=== PATIENT | male | born 1955 | race Caucasian/White ===

== ENCOUNTER 2022-07-08 09:05 | Inpatient (IN) | payer OTHER ==
[~2022-07-08] VITALS: Ht 165.1 cm; Wt 94.8 kg
[2022-07-08] VITALS (11 sets, daily range): BP systolic 88–131; BP diastolic 51–74
[2022-07-08] MEDS ORDERED: CETI-450 PO (09:18)
[2022-07-08] MEDS ORDERED: ELVI1TAB3 PO (09:18)
[2022-07-08] MEDS ORDERED: ROSU20TA73 PO (09:18)
[2022-07-08] MEDS ORDERED: LOSA-382 PO (09:18)
[2022-07-08] MEDS ORDERED: METO50 PO (09:18)
[2022-07-08] MEDS ORDERED: ASPI-989 PO (09:18)
[2022-07-08 09:37] LABS: BASOPHILS % (AUTO) 0.4 % (0.0-2.0); EOSINOPHILS % (AUTO) 2.9 % (1.0-6.0); HEMATOCRIT 33.5 % (41-53); HEMOGLOBIN 11.3 g/dL (13.5-17.5); LYMPHOCYTES # (AUTO) 4.6 K/uL (1.0-4.8); LYMPHOCYTES % (AUTO) 39.2 % (22.0-44.0); MEAN CORPUSCULAR HEMOGLOBIN 33.5 pg (26.0-34.0); MEAN CORPUSCULAR HGB CONC 33.7 G/dL (31.0-37.0); MEAN CORPUSCULAR VOLUME 99 fL (80-100); MONOCYTES # (AUTO) 0.8 K/uL (0.1-1.0); MONOCYTES % (AUTO) 7.1 % (2.0-9.0); NEUTROPHILS % (AUTO) 50.4 % (40.0-70.0); PLATELET COUNT (AUTO) 154 K/uL (150-450); RED BLOOD CELL COUNT(AUTO) 3.38 MIL/uL (4.50-5.90); RED CELL DISTRIBUTION WIDTH 13.7 % (11.5-14.5)
[2022-07-08 09:47] LABS: ANION GAP 14 mmol/L (8-16); CALCIUM, TOTAL 7.8 mg/dL (8.8-10.5); CARBON DIOXIDE 20 mmol/L (22-29); CHLORIDE 104 mmol/L (98-107); CREATININE 1.33 mg/dL (0.60-1.30); GLUCOSE,RANDOM 302 mg/dL (70-110); POTASSIUM 3.5 mmol/L (3.5-5.1); SODIUM SERUM 138 mmol/L (136-145); UREA NITROGEN, BLOOD 25 mg/dL (7-18)
[2022-07-08 09:48] LABS: GLOMERULAR FILTR. RATE CALC 54 mL/min (>60)
[2022-07-08 09:53] LABS: ALANINE AMINOTRANSFERASE 31 U/L (12-78); ALBUMIN 2.8 g/dL (3.4-5.0); ALKALINE PHOSPHATASE 53 U/L (46-116); ASPARTATE AMINOTRANSFERASE 17 U/L (15-37); BILIRUBIN,TOTAL 0.6 mg/dL (0.1-1.0); TOTAL PROTEIN, SERUM 5.6 g/dL (6.4-8.2)
[2022-07-08 09:56] LABS: LACTIC ACID 5.7 mmol/L (0.4-2.0)
[2022-07-08 10:03] LABS: INR 1.1 (0.9-1.1)
[2022-07-08] MEDS ORDERED: CALCIUM GLUCONATE 1,000 MG in DEXTROSE 5%-WATER 50 ML IV ONE (10:45)
[2022-07-08 11:45] LABS: BASOPHILS % (AUTO) 0.1 % (0.0-2.0); EOSINOPHILS % (AUTO) 0.2 % (1.0-6.0); HEMATOCRIT 36.2 % (41-53); LYMPHOCYTES # (AUTO) 2.3 K/uL (1.0-4.8); LYMPHOCYTES % (AUTO) 13.4 % (22.0-44.0); MEAN CORPUSCULAR HEMOGLOBIN 33.3 pg (26.0-34.0); MEAN CORPUSCULAR HGB CONC 33.3 G/dL (31.0-37.0); MEAN CORPUSCULAR VOLUME 100 fL (80-100); MONOCYTES # (AUTO) 1.1 K/uL (0.1-1.0); MONOCYTES % (AUTO) 6.4 % (2.0-9.0); NEUTROPHILS # (AUTO) 13.9 K/uL (1.8-7.7); NEUTROPHILS % (AUTO) 79.9 % (40.0-70.0); PLATELET COUNT (AUTO) 163 K/uL (150-450); RED BLOOD CELL COUNT(AUTO) 3.62 MIL/uL (4.50-5.90); RED CELL DISTRIBUTION WIDTH 14.1 % (11.5-14.5)
[2022-07-08] MEDS ORDERED: METO25 PO (12:38)
[2022-07-08] MEDS ORDERED: SILVER NITRATE APPLICATOR 1 EA STICK TP ONE ×2 (12:53→13:15)
[2022-07-08] MEDS ORDERED: ALBUTEROL SULFATE 2.5 MG/0.5 ML NEB SOLUTION NEB PRN (15:00)
[2022-07-08] MEDS ORDERED: IPRATROPIUM BROMIDE 0.5 MG/2.5 ML NEB SOLUTION NEB PRN (15:00)
[2022-07-08] MEDS ORDERED: ONDANSETRON HCL 4 MG/2 ML VIAL IVP PRN (15:00)
[2022-07-08] MEDS ORDERED: ACETAMINOPHEN 325 MG TABLET PO PRN (15:00)
[2022-07-08] MEDS ORDERED: HYDROCODONE/ACETAMINOPHEN 5-325 MG TABLET PO PRN (15:00)
[2022-07-08] MEDS ORDERED: DOCUSATE SODIUM 100 MG CAPSULE PO PRN (15:00)
[2022-07-08] MEDS: SODIUM CHLORIDE 0.9% 1,000 ML IV SCH (15:34)
[2022-07-08 15:51] LABS: BASOPHILS % (AUTO) 0.2 % (0.0-2.0); EOSINOPHILS % (AUTO) 0 % (1.0-6.0); HEMATOCRIT 35.5 % (41-53); HEMOGLOBIN 12.1 g/dL (13.5-17.5); LYMPHOCYTES # (AUTO) 1.3 K/uL (1.0-4.8); LYMPHOCYTES % (AUTO) 11.3 % (22.0-44.0); MEAN CORPUSCULAR HEMOGLOBIN 33.4 pg (26.0-34.0); MEAN CORPUSCULAR VOLUME 98 fL (80-100); MONOCYTES # (AUTO) 0.3 K/uL (0.1-1.0); MONOCYTES % (AUTO) 3.1 % (2.0-9.0); NEUTROPHILS # (AUTO) 9.5 K/uL (1.8-7.7); PLATELET COUNT (AUTO) 137 K/uL (150-450); RED BLOOD CELL COUNT(AUTO) 3.61 MIL/uL (4.50-5.90); RED CELL DISTRIBUTION WIDTH 14.6 % (11.5-14.5)
[2022-07-08 15:55] LABS: NEUTROPHILS % (AUTO) 85.4 % (40.0-70.0)
[2022-07-08] MEDS ORDERED: HEPARIN SODIUM,PORCINE 5,000 UNITS/ML VIAL IVP ONE (16:30)
[2022-07-08] MEDS ORDERED: HEPARIN SODIUM,PORCINE 5,000 UNITS/ML VIAL IVP PRN ×2 (16:30)
[2022-07-08] MEDS: HEPARIN SODIUM 25000 UNITS/D5W 250 ML IV PRN (16:46)
[2022-07-08] MEDS ORDERED: NITROGLYCERIN 50 MG/D5% WATER 250 ML ONE (19:36)
[2022-07-08] MEDS ORDERED: VERAPAMIL HCL 2.5 MG/ML 2 ML VIAL ONE (19:36)
[2022-07-08] MEDS ORDERED: LIDOCAINE/PF 1% 30 ML VIAL ONE (19:37)
[2022-07-08] MEDS ORDERED: SODIUM BICARBONATE 50 MEQ/50 ML VIAL ONE (19:37)
[2022-07-08] MEDS ORDERED: IOHEXOL 350 MG/ML 100 ML VIAL ONE (19:37)
[2022-07-08] MEDS ORDERED: HEPARIN SODIUM 1000 UNITS/NS 1,000 ML ONE (19:37)
[2022-07-08] MEDS ORDERED: FentaNYL CITRATE PF 100 MCG/2 ML VIAL ONE (20:20)
[2022-07-08] MEDS ORDERED: MIDAZOLAM HCL 2 MG/2 ML VIAL ONE (20:20)
[2022-07-08] MEDS ORDERED: LIDOCAINE 1% 30 ML/SOD BICARB 8.4% 4 ML SQ ONE (20:30)
[2022-07-08] MEDS ORDERED: MIDAZOLAM HCL 2 MG/2 ML VIAL IVP ONE (20:30)
[2022-07-08] MEDS ORDERED: FentaNYL CITRATE PF 100 MCG/2 ML VIAL IVP ONE (20:30)
[2022-07-08] MEDS ORDERED: HEPARIN SODIUM,PORCINE 1,000 UNITS/ML 10 ML VIAL IARTER ONE (20:30)
[2022-07-08] MEDS ORDERED: VERAPAMIL HCL 2.5 MG/ML 2 ML VIAL IARTER ONE (20:30)
[2022-07-08] MEDS ORDERED: NITROGLYCERIN/D5W 50 MG/250 ML IV BOTTLE IARTER ONE (20:30)
[2022-07-08] MEDS ORDERED: HEPARIN SODIUM 1000 UNITS/NS 1,000 ML IARTER ONE (20:30)
[2022-07-09] VITALS (9 sets, daily range): BP systolic 118–159; BP diastolic 57–85
[2022-07-09] MEDS: SODIUM CHLORIDE 0.9% 1,000 ML IV SCH (04:38)
[2022-07-09 05:29] LABS: BASOPHILS % (AUTO) 0.1 % (0.0-2.0); EOSINOPHILS % (AUTO) 0 % (1.0-6.0); HEMOGLOBIN 10.4 g/dL (13.5-17.5); MEAN CORPUSCULAR HEMOGLOBIN 33.8 pg (26.0-34.0); MEAN CORPUSCULAR HGB CONC 34.6 G/dL (31.0-37.0); MEAN CORPUSCULAR VOLUME 98 fL (80-100); MONOCYTES # (AUTO) 0.9 K/uL (0.1-1.0); MONOCYTES % (AUTO) 6.7 % (2.0-9.0); NEUTROPHILS # (AUTO) 11.1 K/uL (1.8-7.7); NEUTROPHILS % (AUTO) 79.2 % (40.0-70.0); PLATELET COUNT (AUTO) 135 K/uL (150-450); RED BLOOD CELL COUNT(AUTO) 3.08 MIL/uL (4.50-5.90); RED CELL DISTRIBUTION WIDTH 14.6 % (11.5-14.5)
[2022-07-09 05:55] LABS: ALANINE AMINOTRANSFERASE 32 U/L (12-78); ALBUMIN 3.1 g/dL (3.4-5.0); ALKALINE PHOSPHATASE 37 U/L (46-116); ANION GAP 11 mmol/L (8-16); ASPARTATE AMINOTRANSFERASE 63 U/L (15-37); BILIRUBIN,TOTAL 0.8 mg/dL (0.1-1.0); CALCIUM, TOTAL 8.3 mg/dL (8.8-10.5); CARBON DIOXIDE 25 mmol/L (22-29); CHLORIDE 104 mmol/L (98-107); CHOL/HDL RATIO 3.2 (4.2-7.3); CHOLESTEROL 107 mg/dL (131-200); CREATININE 0.91 mg/dL (0.60-1.30); FREE T4 (FREE THYROXINE) 0.89 ng/dL (0.76-1.46); GLUCOSE,RANDOM 202 mg/dL (70-110); HDL CHOLESTEROL 33 mg/dL (40-60); LDL CHOL (CALC.) 44 mg/dL (0-130); POTASSIUM 4.2 mmol/L (3.5-5.1); SODIUM SERUM 140 mmol/L (136-145); THYROID STIMULATING HORMONE 0.29 uIU/mL (0.36-3.74); TOTAL PROTEIN, SERUM 6.2 g/dL (6.4-8.2); TRIGLYCERIDES 150 mg/dL (15-150); UREA NITROGEN, BLOOD 21 mg/dL (7-18)
[2022-07-09 06:07] LABS: GLOMERULAR FILTR. RATE CALC > 60 mL/min (>60)
[2022-07-09 06:51] LABS: HEMOGLOBIN A1C 6.5 % (3.8-5.6)
[2022-07-09] MEDS: FAMOTIDINE 20 MG TABLET PO SCH (08:55)
[2022-07-09] MEDS: ASPIRIN 81 MG DR TABLET PO SCH (08:55)
[2022-07-09] MEDS: ATORVASTATIN CALCIUM 10 MG TABLET PO SCH (08:56)
[2022-07-09] MEDS ORDERED: METOPROLOL TARTRATE 25 MG TABLET PO SCH (09:00)
[2022-07-09] MEDS: METOPROLOL TARTRATE 25 MG TABLET PO SCH ×2 (13:21→18:38)
[2022-07-09] MEDS: NITROGLYCERIN 2% (1 GM=INCH) PACKET TP SCH ×2 (13:21→18:38)
[2022-07-09] MEDS: HEPARIN SODIUM 25000 UNITS/D5W 250 ML IV PRN (13:24)
[2022-07-09 23:21] LABS: GLUCOSE,POINT OF CARE 212 MG/DL (70-110)
[2022-07-09] MEDS ORDERED: DEXTROSE 50%-WATER 25 GM/50 ML SYRINGE IVP PRN (23:45)
[2022-07-10] VITALS: BP 135/76
[2022-07-10 04:00] VITALS: BP 108/67
[2022-07-10 05:14] LABS: BASOPHILS % (AUTO) 0.1 % (0.0-2.0); EOSINOPHILS % (AUTO) 0 % (1.0-6.0); HEMATOCRIT 26.1 % (41-53); HEMOGLOBIN 9.1 g/dL (13.5-17.5); LYMPHOCYTES # (AUTO) 2.7 K/uL (1.0-4.8); LYMPHOCYTES % (AUTO) 14.2 % (22.0-44.0); MEAN CORPUSCULAR HEMOGLOBIN 34.1 pg (26.0-34.0); MEAN CORPUSCULAR HGB CONC 34.7 G/dL (31.0-37.0); MEAN CORPUSCULAR VOLUME 98 fL (80-100); MONOCYTES # (AUTO) 1.6 K/uL (0.1-1.0); MONOCYTES % (AUTO) 8.4 % (2.0-9.0); NEUTROPHILS # (AUTO) 14.5 K/uL (1.8-7.7); NEUTROPHILS % (AUTO) 77.3 % (40.0-70.0); PLATELET COUNT (AUTO) 133 K/uL (150-450); RED BLOOD CELL COUNT(AUTO) 2.66 MIL/uL (4.50-5.90); RED CELL DISTRIBUTION WIDTH 14.3 % (11.5-14.5)
[2022-07-10 05:25] LABS: ANION GAP 6 mmol/L (8-16); CALCIUM, TOTAL 8.4 mg/dL (8.8-10.5); CARBON DIOXIDE 27 mmol/L (22-29); CHLORIDE 106 mmol/L (98-107); CREATININE 0.88 mg/dL (0.60-1.30); GLUCOSE,RANDOM 181 mg/dL (70-110); SODIUM SERUM 139 mmol/L (136-145); UREA NITROGEN, BLOOD 24 mg/dL (7-18)
[2022-07-10 05:31] LABS: GLOMERULAR FILTR. RATE CALC > 60 mL/min (>60)
[2022-07-10] MEDS: METOPROLOL TARTRATE 25 MG TABLET PO SCH ×2 (06:30→12:53)
[2022-07-10] MEDS: HEPARIN SODIUM 25000 UNITS/D5W 250 ML IV PRN (06:31)
[2022-07-10] MEDS: FAMOTIDINE 20 MG TABLET PO SCH (08:41)
[2022-07-10] MEDS: ATORVASTATIN CALCIUM 10 MG TABLET PO SCH (08:41)
[2022-07-10] MEDS: NITROGLYCERIN 2% (1 GM=INCH) PACKET TP SCH ×2 (08:41)
[2022-07-10] MEDS: ASPIRIN 81 MG DR TABLET PO SCH (08:41)
[2022-07-10] MEDS: INSULIN LISPRO 100 UNITS/ML SQ PRN ×2 (10:52)
[2022-07-10 11:01] LABS: GLUCOSE,POINT OF CARE 253 MG/DL (70-110)
== END 2022-07-10 13:05 | disposition short-term general hospital (02) | DRG 280 ==
LOC: EMS 09:05 → ICU 21:10
PROVIDERS: ADMIT Internal Medicine; ATTEND Internal Medicine
PROC: B2111ZZ Fluoroscopy of Multiple Coronary Arteries using Low Osmolar Contrast (ICD-10-PCS; principal; 2022-07-08)
PROC: 30233N1 Transfusion of Nonautologous Red Blood Cells into Peripheral Vein, Percutaneous Approach (ICD-10-PCS; 2022-07-08)
DX: I21.4 Non-ST elevation (NSTEMI) myocardial infarction (principal); R57.8 Other shock; E78.00 Pure hypercholesterolemia, unspecified; I10 Essential (primary) hypertension; E78.5 Hyperlipidemia, unspecified; I25.10 Atherosclerotic heart disease of native coronary artery without angina pectoris; I83.899 Varicose veins of unspecified lower extremity with other complications; Z21 Asymptomatic human immunodeficiency virus [HIV] infection status; I45.10 Unspecified right bundle-branch block; I25.2 Old myocardial infarction; Z79.899 Other long term (current) drug therapy; Z79.82 Long term (current) use of aspirin
CPT/HCPCS: 80048; 80053; 80061; 82962; 83036; 83605; 84145; 84439; 84443; 84484; 85025; 85610; 85730; 86850; 86900; 86901; 86923; 87081; 93005; 93306; 99291; G0378; J0610; J1644; J2250; J3010; J3490; J7030; J7060; P9016; Q9967